=== PATIENT | female | born 1960 | race Asian ===

== ENCOUNTER 2017-02-13 15:00 | Emergency (ER) | payer OTHER ==
[~2017-02-13] VITALS: Ht 160 cm; Wt 68.0 kg
[~2017-02-13 15:00] MED LIST: ALPR0.25 PO; AZIT250T6 PO; BENZ100C PO; MAGN400C PO
[2017-02-13 15:06] VITALS: BP 132/86
--- NOTE | 2017-02-13 15:22 | PHYS DOC ---
General Chief Complaint: NEEDLE STICK Stated Complaint: NEEDLE STICK Time Seen by MD: 15:19 Source: patient Exam Limitations: no limitations Problems: History of Present Illness Initial Comments Pt is 56/F [facility] employee here for Work Comp needle stick injury. Pt accidentally stuck by needle this am while taking out trash. Needle was without protective tip cover and had been placed in the general trash--not a sharps. Pt states needle penetrated gloved right hand at anterior base 5th finger. Did not appear to go in deeply but pt says there was a tiny drop of blood. She washed the wound aggressively and reported to [facility]. In [facility] a report taken, labs ordered and pt ultimately sent to ED for labs and discuss post-exposure prophylaxis. CBC/CMP unremarkable, urine HCG neg , other labs apparently remain pending. Pt Td is up to date, she denies any hand or other symptoms. Pt has HTN otherwise negative history. Onset: this morning Severity: mild Pain/Injury Location: right hand Method of Injury: other Modifying Factors: improves with other Allergies: Coded Allergies: No Known Drug Allergies (Unverified , 04/20/16) Past Medical History Medical History: hypertension Surgical History: noncontributory Social History Smoker: non-smoker Alcohol: none Drugs: none Review of Systems Constitutional: denies chills, denies fever Respiratory: denies cough, denies shortness of breath Cardiovascular: denies chest pain, denies palpitations Gastrointestinal: denies nausea, denies vomiting Skin: see HPI Physical Exam General Appearance: WD/WN, no apparent distress Hand: normal inspection, non-tender, no evidence of injury (tiny puncture ant hand base right finger no erythema or other changes) Neurologic/Tendon: normal sensation, normal motor functions, normal tendon functions, responds to pain, no evidence tendon injury Psychiatric: alert, oriented x 3 Skin: normal color, warm/dry (R hand as above) Orders, Labs, Meds I discussed post-exposure prophylaxis with pt at length. No actual known exposure to HIV, pt very low risk and PEP not indicated. It was offered to pt as her choice, she opts not to take PEP. Advised to f/u [facility] regarding pending tests Departure Time of Disposition: 15:20 Disposition: 01 HOME, SELF-CARE Diagnosis: body fluid exposure, accidental needlestick Condition: GOOD Patient Instructions: Body Fluid Exposure, Needle Stick Injury Additional Instructions: No post-exposure prophylaxis. Follow up with employee health for pending results. Return to ED with new or changing symptoms. SIDDHARTHA LOPEZ DO Feb 13, 2017 15:22
== END 2017-02-13 15:30 | disposition home or self-care (01) ==
LOC: ER 15:00
DX: Z77.21 Contact with and (suspected) exposure to potentially hazardous body fluids (principal); S61.236A Puncture wound without foreign body of right little finger without damage to nail, initial encounter; I10 Essential (primary) hypertension; W46.0XXA Contact with hypodermic needle, initial encounter; Y93.89 Activity, other specified; Y99.8 Other external cause status; Y92.89 Other specified places as the place of occurrence of the external cause
CPT/HCPCS: 99281

== ENCOUNTER 2017-02-20 17:05 | Emergency (ER) | payer OTHER ==
[~2017-02-20] VITALS: Ht 160 cm; Wt 68.0 kg
[2017-02-20 17:15] VITALS: BP 135/95
[2017-02-20] MEDS ORDERED: ONDA4TAB10 PO (17:19)
--- NOTE | 2017-02-20 17:28 | ED.ADGEN ---
Past History Past Medical History: Hypertension Past Surgical History: No Surgical History Alcohol Use: None Drug Use: None Adult General HPI HPI Patient is a 56-year-old female present emergency department complaining of extreme nausea following her injection for her post exposure prophylaxis. Patient denies any other recent illness. She has not had any pre-arrival intervention today. Review of Systems Review of Systems Constitutional: Denies fever or chills [] Eyes: Denies change in visual acuity, redness, or eye pain [] HENT: Denies nasal congestion or sore throat [] Respiratory: Denies cough or shortness of breath [] Cardiovascular: No additional information not addressed in HPI [] GI: Denies abdominal pain, nausea, vomiting, bloody stools or diarrhea [] : Denies dysuria or hematuria [] Musculoskeletal: Denies back pain or joint pain [] Integument: Denies rash or skin lesions [] Neurologic: Denies headache, focal weakness or sensory changes [] Endocrine: Denies polyuria or polydipsia [] Current Medications Current Medications Current Medications Medications (Trade) Dose Ordered Sig/Ozzy Start Time Stop Time Status Last Admin Dose Admin Ondansetron HCl (Zofran Odt) 8 mg 1X ONCE 02/20/17 17:30 02/20/17 17:31 DC 02/20/17 17:30 8 MG Allergies Allergies Allergies Coded Allergies Type Severity Reaction Last Updated Verified No Known Drug Allergies 04/20/16 No Physical Exam Physical Exam Constitutional: Well developed, well nourished, no acute distress, non-toxic appearance. [] HENT: Normocephalic, atraumatic, bilateral external ears normal, oropharynx moist, no oral exudates, nose normal. [] Eyes: PERRLA, EOMI, conjunctiva normal, no discharge. [] Neck: Normal range of motion, no tenderness, supple, no stridor. [] Cardiovascular:Heart rate regular rhythm, no murmur [] Lungs & Thorax: Bilateral breath sounds clear to auscultation [] Abdomen: Bowel sounds normal, soft, no tenderness, no masses, no pulsatile masses. [] Skin: Warm, dry, no erythema, no rash. [] Back: No tenderness, no CVA tenderness. [] Extremities: No tenderness, no cyanosis, no clubbing, ROM intact, no edema. [] Neurologic: Alert and oriented X 3, normal motor function, normal sensory function, no focal deficits noted. [] Psychologic: Affect normal, judgement normal, mood normal. [] Current Patient Data Vital Signs Vital Signs Date Time Temp Pulse Resp B/P Pulse Ox O2 Delivery O2 Flow Rate FiO2 02/20/17 17:15 98.6 95 20 99 Room Air EKG EKG [] Radiology/Procedures Radiology/Procedures [] Course & Med Decision Making Course & Med Decision Making Pertinent Labs and Imaging studies reviewed. (See chart for details) Brisa RIOST here. Patient was sent with prescription for the same as well as supportive care and follow-up instructions. [] Final Impression Final Impression Nausea and vomiting [] Problems: Dragon Disclaimer Dragon Disclaimer This electronic medical record was generated, in whole or in part, using a voice recognition dictation system. MAIN HOLLEY MD Feb 20, 2017 17:28
[2017-02-20] MEDS: ONDANSETRON ODT 4 MG TAB.RAPDIS PO ONE (17:30)
== END 2017-02-20 17:55 | disposition home or self-care (01) ==
LOC: ER 17:05
DX: R11.2 Nausea with vomiting, unspecified (principal); I10 Essential (primary) hypertension
CPT/HCPCS: 99283; Q0162

== ENCOUNTER 2017-04-23 13:55 | Observation (INO) | payer OTHER ==
[~2017-04-23] VITALS: Ht 160 cm; Wt 73.5 kg
[~2017-04-23 13:55] MED LIST changes: +ONDA4TAB10 PO
[2017-04-23] MEDS ORDERED: ASPIRIN 81 MG TAB.CHEW PO ONE (15:30)
[2017-04-23] MEDS ORDERED: MORPHINE SULFATE 2 MG/ML DISP.SYRIN. IV ONE (15:30)
--- NOTE | 2017-04-23 15:39 | RAD ---
Portable chest, 04/23/2017: History: Chest pain The heart is at the upper limits of normal in size. The pulmonary vascularity is normal. No pulmonary infiltrates are seen. There is no evidence of pleural fluid. IMPRESSION: No acute cardiopulmonary abnormality is detected.
[2017-04-23 15:48] LABS: BASO % 1 % (0-3); EOS # 0.1 x10^3/uL (0.0-0.7); EOS % 1 % (0-3); HEMATOCRIT 40.8 % (36.0-47.0); LYMPH # 2.2 x10^3/uL (1.0-4.8); LYMPH % 39 % (24-48); MEAN CORPUSCULAR HEMOGLOBIN 31 pg (25-35); MEAN CORPUSCULAR HGB CONC 34 g/dL (31-37); MEAN CORPUSCULAR VOLUME 91 fL (79-100); MONO # 0.4 x10^3/uL (0.0-1.1); MONO % 7 % (0-9); NEUT % 53 % (31-73); PLATELET COUNT 147 x10^3/uL (140-400); RED CELL DISTRIBUTION WIDTH 13.4 % (11.5-14.5); WHITE BLOOD COUNT 5.6 x10^3/uL (4.0-11.0)
--- NOTE | 2017-04-23 16:02 | EKG ---
[address] [address] Test Date: 2017-04-23 Test Time: 14:10:36 Pat Name: ARGELIA VELEZ Department: Room: Gender: F Records Analyst: SHAMA : 1960 Requested By: MARQUEZ REARDON Order Number: [id number] Reading MD: Raffaele Espinoza Measurements Intervals [place] Rate: 80 P: 48 GA: 162 QRS: 38 QRSD: 86 T: 57 QT: 402 QTc: 467 Interpretive Statements SINUS RHYTHM NON SPECIFIC T ABNORMALITY RI6.01 Unconfirmed report Compared to ECG 04/20/2016 09:21:14 ST (T wave) deviation no longer present T-wave abnormality still present Electronically Signed On 04-24-2017 9:57:59 CDT by Raffaele Espinoza
[2017-04-23 16:04] LABS: ALBUMIN/GLOBULIN RATIO 1.1 (1.0-1.7); CALCIUM 8.9 mg/dL (8.5-10.1); CREATININE 0.7 mg/dL (0.6-1.0); GFR 86.6; MAGNESIUM 2.1 mg/dL (1.8-2.4); POTASSIUM 4.1 mmol/L (3.5-5.1); TOTAL BILIRUBIN 0.3 mg/dL (0.2-1.0); TOTAL PROTEIN 7.5 g/dL (6.4-8.2)
[2017-04-23] MEDS: NITROGLYCERIN SUBLINGUAL 0.4 MG BOTTLE OF 25. SL PRN ×2 (16:39→16:50)
[2017-04-23] MEDS ORDERED: NITROGLYCERIN OINT 1 GM PACKET. ONE (17:08)
--- NOTE | 2017-04-23 17:14 | PHYS DOC ---
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 She feels pain when she pushes on it. She also states that intermittently it is sharp in nature. She states that it has been persistent for the last 2 hours prior to check in. Nothing really seemed to make it better or worse. She denies any associated nausea or vomiting. Complains of having some posterior head pain. She states that she has a "funny" sensation present to the left shoulder and radiating down her arm. Denies parasthesias or loss of motion or loss of strength. Denies any significant weakness. She denies any radiation of the pain to the back. She states that she had pain like this one other time but that has been greater than 10 years ago. She does have a positive family history of CAD with her father dying form IA in his late 50's or so she believes. She states that recently she had been told that her cholesterol was slightly elevated but she doesn't know specific numbers of LDL, HDL or Total chol or triglycerides. She has been a lifetime non smoker and denies and other drug use or alcohol. She denies any respiratory symptoms, no shortness of breath, cough or dyspnea. No difficulties with activity or lying flat. No complaints of edema. No leg pain Denies back pain or abdominal pain. No complaints. Severity: moderate Location: other (present to the left anterior chest above the breast. ) Prior CP/Workup: no prior cardiac workup Modifying Factors: No breathing, No coughing, No eating, No lying down, No movement Nitro Today/Relief: no nitro taken today Aspirin Today: no aspirin today Associated Symptoms: denies symptoms Allergies: Coded Allergies: No Known Drug Allergies (Unverified , 04/20/16) Past Medical History Surgical History: noncontributory Family History Significant Family History: heart disease (mother and father. FAther of IA in late 50's), hypertension, vascular disease Social History Smoker: non-smoker Alcohol: none Drugs: none Constitutional: no symptoms reported EENTM: no symptoms reported Respiratory: no symptoms reported Gastrointestinal: no symptoms reported Genitourinary: no symptoms reported Musculoskeletal: no symptoms reported Skin: no symptoms reported Psychiatric/Neurological: no symptoms reported Endocrine: no symptoms reported Hematologic/Lymphatic: no symptoms reported All Other Systems: Reviewed and Negative Physical Exam General Appearance: WD/WN, no apparent distress HEENT: PERRL/EOMI, normal ENT inspection Neck: non-tender, full range of motion, supple Respiratory: chest non-tender, lungs clear, normal breath sounds Cardiovascular: normal peripheral pulses, regular rate, rhythm, no edema, no JVD, no murmur Peripheral Pulses: 2+ carotid (R), 2+ carotid (L), 2+ dorsalis pedis (R) Gastrointestinal: normal bowel sounds, non tender, soft, no organomegaly, no pulsatile mass Extremities: normal range of motion, normal inspection, no pedal edema, no calf tenderness, normal capillary refill Neurologic/Psychiatric: district court justice II-XII nml as tested, no motor/sensory deficits, alert, normal mood/affect, oriented x 3 Skin: normal color Lymphatic: no adenopathy Orders, Labs, Meds Laboratory results discussed with patient and family. Patient discussed with Dr. Hagan. Patient will be admitted for chest pain evaluation. She is agreeable to this plan of admission at this time. Patient did have relief of chest pain with nitro sublingual and patient had nitro placed on chest 1" MARQUEZ REARDON MD Apr 23, 2017 17:14
[2017-04-23] MEDS ORDERED: NITROGLYCERIN OINT 1 GM PACKET. TP ONE (17:30)
[2017-04-23 17:35] LABS: BILIRUBIN,URINE NEG (NEG); CLARITY,URINE CLEAR; COLOR,URINE STRAW; GLUCOSE,URINE NEG (NEG)
[2017-04-23 17:36] LABS: BACTERIA,URINE 0 /HPF (0-FEW); NITRITE,URINE NEG (NEG); RBC,URINE 0 /HPF (0-2); UROBILINOGEN,URINE 0.2 mg/dL (0.2 mg/dL); WBC,URINE OCC /HPF (0-4)
[2017-04-23 17:37] LABS: SQUAMOUS EPITHELIAL CELL,UR OCC /LPF
[2017-04-23 18:00] VITALS: BP 129/74
[2017-04-23 23:30] VITALS: BP 114/66
[2017-04-24 06:17] LABS: BASO % 1 % (0-3); EOS # 0.1 x10^3/uL (0.0-0.7); EOS % 2 % (0-3); HEMOGLOBIN 13.5 g/dL (12.0-15.5); LYMPH # 1.4 x10^3/uL (1.0-4.8); LYMPH % 29 % (24-48); MEAN CORPUSCULAR HEMOGLOBIN 31 pg (25-35); MEAN CORPUSCULAR HGB CONC 35 g/dL (31-37); MEAN CORPUSCULAR VOLUME 90 fL (79-100); MONO # 0.4 x10^3/uL (0.0-1.1); MONO % 8 % (0-9); NEUT # 2.9 x10^3uL (1.8-7.7); NEUT % 61 % (31-73); PLATELET COUNT 134 x10^3/uL (140-400); RED BLOOD COUNT 4.34 x10^6/uL (3.50-5.40); RED CELL DISTRIBUTION WIDTH 13.3 % (11.5-14.5); WHITE BLOOD COUNT 4.7 x10^3/uL (4.0-11.0)
[2017-04-24 06:19] VITALS: BP 121/80
[2017-04-24 06:29] LABS: CALCIUM 8.8 mg/dL (8.5-10.1); CREATININE 0.6 mg/dL (0.6-1.0); GFR 103.4; POTASSIUM 4.2 mmol/L (3.5-5.1)
--- NOTE | 2017-04-24 09:41 | PDOC2 ---
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 She presents with complaints of chest pressure that started while at work yesterday. She describes a squeezing discomfort occurring when she exerts or when she becomes emotional and normally resolves with rest. She reports this has occurred off and on prior to yesterday but not as severe. In the ED she described some radiation to her left arm but this am she reports only some radiation up the back of her neck. She denies nausea or diaphoresis but reports some associated dyspnea, lightheadedness and weakness or feeling fatigued. She reports feeling more weak and fatigued lately. She denies any palpitations, congestive symptoms or syncope. She denies problems with functional capacity except as above. She does report episodes of weakness that she associates with low blood sugar and reports rest and food improve the symptoms. Her discomfort was improved in the ED with NTG. Past Medical History HLD Past Surgical History: Hysterectomy Family History Father with coronary disease and hypertension in his 50s. Social History non smoker, no significant ETOH, no illicit drugs Current Medications Current Medications Aspirin (Children'S Aspirin) 324 mg 1X ONCE PO Last administered on 04/23/17 15:30; Start 04/23/17 at 15:30; Stop 04/23/17 at 15:31; Status DC Morphine Sulfate (Morphine 2mg Syringe) 2 mg 1X ONCE IV Last administered on 15:45; Start 04/23/17 at 15:30; Stop 04/23/17 at 15:31; Status DC Nitroglycerin (Nitro-Bid Oint) 1 inch 1X ONCE TP Last administered on 17:10; Start 04/23/17 at 17:30; Stop 04/23/17 at 17:31; Status DC Nitroglycerin (Nitro-Bid Oint) 1 inch STK-MED ONCE .ROUTE ; Start 04/23/17 at 17: 08; Stop 04/23/17 at 17:09; Status DC Nitroglycerin (Nitrostat) 0.4 mg PRN Q5MIN PRN SL chest pain Last administered on 04/23/17 16:50; Start 04/23/17 at 17:15 Active Scripts Active Zofran Odt (Ondansetron) 4 Mg Tab.rapdis 4 Mg PO Q6HRS PRN Tessalon Perle (Benzonatate) 100 Mg Capsule 1 Cap PO TID PRN Azithromycin Tablet (Azithromycin) 250 Mg Tablet 1 Pkg PO UD Xanax (Alprazolam) 0.25 Mg Tablet 0.25 Mg PO PRN Q6HRS PRN Reported Magnesium (Magnesium Oxide) 400 Mg Capsule 1 Cap PO DAILY PRN Allergies: Coded Allergies: No Known Drug Allergies (Unverified , 04/20/16) Review of System as per HPI General: Alert, Oriented X3, Cooperative, No acute distress HEENT: Atraumatic, EOMI, Mucous membr. moist/pink Lungs: Clear to auscultation, Normal air movement Heart: Regular rate, Normal S1, Normal S2, Other (no significant murmurs, no gallops, clicks or rubs) Abdomen: Normal bowel sounds, Soft, No tenderness Extremities: No cyanosis, No edema, Normal pulses Neuro: Normal speech, Strength at 5/5 X4 ext Psych/Mental Status: Mental status NL, Mood NL VITALS Vital Signs Date Time Temp Pulse Resp B/P (MAP) Pulse Ox O2 Delivery O2 Flow Rate FiO2 04/24/17 06:19 97.7 64 18 121/80 (94) 94 Room Air Labs Laboratory Tests Test 04/23/17 14:13 04/23/17 16:50 04/24/17 00:20 04/24/17 05:57 White Blood Count 5.6 x10^3/uL (4.0-11.0) 4.7 x10^3/uL (4.0-11.0) Red Blood Count 4.50 x10^6/uL (3.50-5.40) 4.34 x10^6/uL (3.50-5.40) Hemoglobin 14.0 g/dL (12.0-15.5) 13.5 g/dL (12.0-15.5) Hematocrit 40.8 % (36.0-47.0) 39.0 % (36.0-47.0) Mean Corpuscular Volume 91 fL (79-100) 90 fL (79-100) Mean Corpuscular Hemoglobin 31 pg (25-35) 31 pg (25-35) Mean Corpuscular Hemoglobin Concent 34 g/dL (31-37) 35 g/dL (31-37) Red Cell Distribution Width 13.4 % (11.5-14.5) 13.3 % (11.5-14.5) Platelet Count 147 x10^3/uL (140-400) 134 x10^3/uL (140-400) Neutrophils (%) (Auto) 53 % (31-73) 61 % (31-73) Lymphocytes (%) (Auto) 39 % (24-48) 29 % (24-48) Monocytes (%) (Auto) 7 % (0-9) 8 % (0-9) Eosinophils (%) (Auto) 1 % (0-3) 2 % (0-3) Basophils (%) (Auto) 1 % (0-3) 1 % (0-3) Neutrophils # (Auto) 3.0 x10^3uL (1.8-7.7) 2.9 x10^3uL (1.8-7.7) Lymphocytes # (Auto) 2.2 x10^3/uL (1.0-4.8) 1.4 x10^3/uL (1.0-4.8) Monocytes # (Auto) 0.4 x10^3/uL (0.0-1.1) 0.4 x10^3/uL (0.0-1.1) Eosinophils # (Auto) 0.1 x10^3/uL (0.0-0.7) 0.1 x10^3/uL (0.0-0.7) Basophils # (Auto) 0.0 x10^3/uL (0.0-0.2) 0.0 x10^3/uL (0.0-0.2) Prothrombin Time 9.6 SEC (9.4-11.4) Prothromb Time International Ratio 0.9 (0.9-1.1) Activated Partial Thromboplast Time 23 SEC (23-33) D-Dimer (Flores) 0.52 mg/L (0.00-0.50) Sodium Level 143 mmol/L (136-145) 144 mmol/L (136-145) Potassium Level 4.1 mmol/L (3.5-5.1) 4.2 mmol/L (3.5-5.1) Chloride Level 108 mmol/L (98-107) 109 mmol/L (98-107) Carbon Dioxide Level 30 mmol/L (21-32) 30 mmol/L (21-32) Anion Gap 5 (6-14) 5 (6-14) Blood Urea Nitrogen 19 mg/dL (7-20) 15 mg/dL (7-20) Creatinine 0.7 mg/dL (0.6-1.0) 0.6 mg/dL (0.6-1.0) Estimated GFR (Cockcroft-Gault) 86.6 103.4 BUN/Creatinine Ratio 27 (6-20) Glucose Level 107 mg/dL (70-99) 116 mg/dL (70-99) Calcium Level 8.9 mg/dL (8.5-10.1) 8.8 mg/dL (8.5-10.1) Magnesium Level 2.1 mg/dL (1.8-2.4) Total Bilirubin 0.3 mg/dL (0.2-1.0) Aspartate Amino Transf (AST/SGOT) 21 U/L (15-37) Alanine Aminotransferase (ALT/SGPT) 32 U/L (14-59) Alkaline Phosphatase 115 U/L (46-116) Creatine Kinase 141 U/L (26-192) Creatine Kinase MB (Mass) 0.7 ng/mL (0.0-3.6) Creatine Kinase MB Relative Index 0.5 % (0-4) Troponin I Quantitative < 0.017 ng/mL (0-0.055) < 0.017 ng/mL (0-0.055) < 0.017 ng/mL (0-0.055) Total Protein 7.5 g/dL (6.4-8.2) Albumin 4.0 g/dL (3.4-5.0) Albumin/Globulin Ratio 1.1 (1.0-1.7) Lipase 228 U/L (73-393) Urine Collection Type Unknown Urine Color Straw Urine Clarity Clear Urine pH 5.5 Urine Specific [place] 1.010 Urine Protein Neg (NEG-TRACE) Urine Glucose (UA) Neg mg/dL (NEG) Urine Ketones (Stick) Neg mg/dL (NEG) Urine Blood Trace (NEG) Urine Nitrite Neg (NEG) Urine Bilirubin Neg (NEG) Urine Urobilinogen Dipstick 0.2 mg/dL (0.2 mg/dL) Urine Leukocyte Esterase Neg (NEG) Urine RBC 0 /HPF (0-2) Urine WBC Occ /HPF (0-4) Urine Squamous Epithelial Cells Occ /LPF Urine Bacteria 0 /HPF (0-FEW) Images CXR - IMPRESSION: No acute cardiopulmonary abnormality is detected. EKG - sinus rhythm without acute abnormalities. Assessment/Plan 1. Chest pain, exertional - improved with nitrates. Cooper remain negative. EKG - no acute abnormalities. Suggest echocardiogram. In light of her family history of premature coronary disease and exertional pain relief with nitrates, suggest outpatient MPI if echo normal. 2. HLD - check lipids. 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
[2017-04-24 10:39] VITALS: BP 116/73
[2017-04-24] MEDS ORDERED: IOHEXOL 300 MG/ML 75 ML VIAL. IV ONE (11:45)
--- NOTE | 2017-04-24 12:39 | RAD ---
Indication chest pain. Elevated d-dimer. Contrast imaging through the chest was performed. Examination was tailored for the detection of pulmonary embolus. MIP images were generated and reviewed. No prior CT imaging of the chest is available. 75 cc of Omnipaque 300 was administered intravenously. The thoracic aorta appears unremarkable. The study is negative for pulmonary embolus. There is no significant hilar or mediastinal adenopathy. An acute parenchymal infiltrate is not seen. A dominant soft tissue mass in either lung is not seen. No acute or significant finding is seen in the upper abdomen. There is a 1 cm mass in the liver likely reflecting a cyst IMPRESSION: No acute finding apparent in the chest. Negative study for pulmonary embolus PQRS Compliance Statement: One or more of the following individualized dose reduction techniques were utilized for this examination: 1. Automated exposure control 2. Adjustment of the mA and/or kV according to patient size 3. Use of iterative reconstruction technique
--- NOTE | 2017-04-24 13:35 | CARD ---
APPROVED REPORT EXAM: Two-dimensional and M-mode echocardiogram with Doppler and color Doppler. Other Information Quality : Average Rhythm : NSR INDICATION Chest Pain 2D DIMENSIONS Left Atrium(2D)3.2 (1.6-4.0cm)IVSd1.0 (0.7-1.1cm) Aortic Root(2D)3.3 (2.0-3.7cm)LVDd5.2 (3.9-5.9cm) LVOT Diameter2.0 (1.8-2.4cm)PWd1.0 (0.7-1.1cm) LVDs3.5 (2.5-4.0cm)FS (%) 33.5 % SV81.5 mlLVEF(%)61.8 (>50%) Aortic Valve AoV Peak Artur.119.8cm/sAoV VTI26.3cm AO Peak GR.5.7mmHgLVOT Peak Artur.84.8cm/s LVOT VTI 21.51cmAO Mean GR.3mmHg LUCRECIA (VMAX)2.58ic3XZV (VTI)2.61cm2 AI P 1/2 Hzmd862zs Mitral Valve MV E Utdhldpk27.1cm/sMV DECEL GDWO797nc MV A Okosixcu71.8cm/sE/A Ratio0.7 MV A Ccdcoquq082yk Tricuspid Valve TR P. Lsqcjdum004kc/sRAP GBPGPYCZ3gnVf TR Peak Gr.29orMsCEQY98rnPh Pulmonary Vein S1 Darvuolk28.9cm/sD2 Satfapes68.5cm/s LEFT VENTRICLE The left ventricle is normal size. There is normal left ventricular wall thickness. Left ventricle sy stolic function is normal. The Ejection Fraction is 55-60%. There is normal LV segmental wall motion. Tissue Doppler imaging reveals mild left ventricular diastolic dysfunction. Transmitral Doppler flow pattern is Grade I-abnormal relaxation pattern. There is no ventricular septal defect visualized. RIGHT VENTRICLE The right ventricle is normal size. The right ventricular systolic function is normal. ATRIA The left atrium size is normal. The right atrium size is normal. The interatrial septum is intact wit h no evidence for an atrial septal defect or patent foramen ovale as noted on 2-D or Doppler imaging. AORTIC VALVE The aortic valve is normal in structure and function. The aortic valve is trileaflet. Doppler and Col or Flow revealed no significant aortic regurgitation. There is no significant aortic valvular stenosi s. MITRAL VALVE The mitral valve is normal in structure and function. There is no mitral valve stenosis. Doppler and Color Flow revealed trace mitral regurgitation. TRICUSPID VALVE The tricuspid valve is normal in structure and function. Doppler and Color Flow revealed trace tricus pid regurgitation. The PA pressure was estimated at 25 mmHg. There is no tricuspid valve stenosis. PULMONIC VALVE The pulmonic valve is not well visualized. Doppler and Color Flow revealed no pulmonic valvular regur gitation. There is no pulmonic valvular stenosis. GREAT VESSELS The aortic root is normal in size. The ascending aorta is normal in size. Normal pulmonary venous domingo w (Doppler). The IVC is normal in size and collapses >50% with inspiration. PERICARDIAL EFFUSION There is no evidence of significant pericardial effusion. Critical Notification Critical Value: No <Conclusion> The left ventricle is normal size. Left ventricle systolic function is normal. The Ejection Fraction is 55-60%. There is no significant aortic valvular stenosis. Doppler and Color Flow revealed no significant aortic regurgitation. Doppler and Color Flow revealed trace mitral regurgitation. Doppler and Color Flow revealed trace tricuspid regurgitation. The PA pressure was estimated at 25 mmHg.
[2017-04-24 14:28] VITALS: BP 119/77
--- NOTE | 2017-04-24 16:25 | HP ---
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 As a result of this, the patient was seen in the Emergency Room. There is a high risk of previous family history of early heart disease, and as a result of this, the patient was admitted to the hospital for rule out ND protocol. The patient reported no shortness breath, nausea, vomiting, or diaphoresis. In any case, the patient was admitted for rule out. PAST SURGICAL HISTORY: Hysterectomy. FAMILY HISTORY: Father of coronary artery disease in his 50s. SOCIAL HISTORY: The patient denies smoking, alcohol, or drug use. MEDICATIONS: Basically, some nitroglycerin and aspirin p.r.n. ALLERGIES: The patient has no known drug allergies. REVIEW OF SYSTEMS: GENERAL: Outside of the chest pain, the patient denies any headaches, visual changes, blurred vision, double vision. Denies shortness of breath, abdominal pain, nausea, vomiting, melena, hematochezia, hematemesis all negative. EXTREMITIES: Without clubbing, cyanosis, or edema. NEUROLOGIC: Intact. PHYSICAL EXAMINATION: GENERAL: This is a pleasant white female in no apparent distress at the present time. VITAL SIGNS: Blood pressure 120/70, respirations 16, pulse 70, afebrile. HEENT: The patient's head was atraumatic, normocephalic. Eyes: PERRLA without jaundice. Mouth and throat were normal. NECK: Supple without JVD or thyromegaly. LUNGS: Diminished throughout, but basically clear. CARDIOVASCULAR: Regular sinus rhythm. ABDOMEN: Soft, nontender. No rebound or guarding. Positive bowel sounds. No hepatosplenomegaly is noted. EXTREMITIES: No clubbing, cyanosis, nor edema. NEUROLOGIC: The patient was alert and oriented x 3. Speech fluent, spontaneous and appropriate. Cranial nerves 2-12 grossly intact. The patient will be admitted to rule out ND protocol. So far, cardiac enzymes were all within normal limits. Elevated D-dimer. CTA pending on such as is the hemoglobin A1c and cholesterol. The patient was seen by Cardiology at [place] and will make further evaluation on her pending the results of her CTA. IMPRESSION: Chest pain with activity, family history positive for early heart disease. We will write reports and make further evaluation at that time. PAULINE MULTANI MD DR: JC/mary JOB#: [id number] / [id number]
[2017-04-25 03:08] LABS: HEMOGLOBIN A1C 5.7 % (4.8-5.6)
== END 2017-04-24 14:46 | disposition home or self-care (01) ==
LOC: ER 13:55 → 1 SOUTH 17:06
PROVIDERS: ADMIT Family Medicine; ATTEND Family Medicine
DX: R07.89 Other chest pain (principal); E78.5 Hyperlipidemia, unspecified; E78.00 Pure hypercholesterolemia, unspecified; Z82.49 Family history of ischemic heart disease and other diseases of the circulatory system
CPT/HCPCS: 36415; 71010; 71275; 80048; 80053; 80061; 81001; 82553; 83036; 83690; 83735; 84443; 84484; 85027; 85379; 85610; 85730; 93005; 93306; 96374; 99285; G0378; J2270; Q9967; G0379

== ENCOUNTER 2017-05-26 09:32 | Emergency (ER) | payer OTHER ==
[~2017-05-26] VITALS: Ht 312.4 cm; Wt 73.5 kg
[2017-05-26 09:39] VITALS: BP 160/106
--- NOTE | 2017-05-26 10:04 | PHYS DOC ---
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 Patient states that yesterday morning around 9 she was wheeling a large cart out of the OR doorway when the door swung back and hit her in the back. She has a bruise at her right costovertebral angle with some abrasion. She denied head injury or loss of consciousness or neck pain, she had pain localized to the site of contact yesterday and she applied ice. Today when she woke she was sore primarily in her thoracic or lumbar paraspinal musculature as well as her upper shoulders and neck. Timing/Duration: 24 hours Severity: mild Modifying Factors: worse with movement, improves with rest Associated Symptoms: malaise, other Allergies: Coded Allergies: No Known Drug Allergies (Unverified , 04/20/16) Past Medical History Medical History: no pertinent history Surgical History: noncontributory Family History Significant Family History: heart disease, hypertension, vascular disease Social History Smoker: non-smoker Alcohol: none Drugs: none Review of Systems Constitutional: denies chills, denies fever Respiratory: denies cough, denies shortness of breath Cardiovascular: denies chest pain, denies palpitations Gastrointestinal: denies abdominal pain, denies nausea, denies vomiting Musculoskeletal: see HPI Psychiatric/Neurological: denies numbness, denies paresthesia, denies tingling , denies weakness Hematologic/Lymphatic: denies blood clots, denies easy bleeding, denies easy bruising Physical Exam General Appearance: WD/WN, no apparent distress Eyes: bilateral eye normal inspection, bilateral eye PERRL, bilateral eye EOMI Ear, Nose, Throat: hearing grossly normal, normal ENT inspection, normal pharynx Neck: supple (there is bilateral paraspinal muscle hypertonicity with mild tenderness, no bony tenderness or palpable deformity.) Respiratory: normal breath sounds, no respiratory distress Cardiovascular: normal peripheral pulses, regular rate, rhythm Gastrointestinal: non tender, soft Back: no CVA tenderness, no vertebral tenderness (tenderness noted at the thoracic or lumbar paraspinals as well as the trapezius muscles. 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 Patient feels she can't get through the rest of the work day, I discuss time off and [id number] medications as well as follow-up with employee health nurse. She is breast agreement and understanding of treatment plan. Departure Time of Disposition: 10:01 Disposition: 01 HOME, SELF-CARE Diagnosis: contusion, abrasion, muscle strain Condition: GOOD Patient Instructions: Abrasion, Emon-[id number]-[id number], Contusion, Rbnl-[id number], Thoracic Strain, [id number]-[id number] Additional Instructions: Rest, no strenuous activity. Off work today as well as tomorrow if needed. Ice to affected area for the remainder of the day 20 minutes at a time 4-6 times per 24 hours. Starting tomorrow use heating pad 20 minutes at a time 4-6 times daily followed by gentle stretching. [id number] Tylenol and ibuprofen as needed for discomfort. Keep abrasions clean and wash twice daily with soap and warm water. Follow-up with employee health regarding work comp injury. Follow-up with her doctor next week for recheck. Return to the ED with new or changing symptoms. SIDDHARTHA LOPEZ DO May 26, 2017 10:04
== END 2017-05-26 10:10 | disposition home or self-care (01) ==
LOC: ER 09:32
DX: S46.912A Strain of unspecified muscle, fascia and tendon at shoulder and upper arm level, left arm, initial encounter (principal); S46.911A Strain of unspecified muscle, fascia and tendon at shoulder and upper arm level, right arm, initial encounter; S20.211A Contusion of right front wall of thorax, initial encounter; W22.8XXA Striking against or struck by other objects, initial encounter; Y93.89 Activity, other specified; Y99.8 Other external cause status; Y92.89 Other specified places as the place of occurrence of the external cause
CPT/HCPCS: 99281

== ENCOUNTER → 2017-06-25 | Outpatient (CLI) | payer OTHER ==
[2017-05-26 09:39] VITALS: BP 160/106
--- NOTE | 2017-06-25 13:37 | CARD ---
APPROVED REPORT INDICATION Atypical chest pain Reason : Dizziness PROCEDURE The patient underwent an exercise Stress Test using the Michael protocol. Blood pressure, heart rate, a nd EKG were monitored. An Echocardiogram was performed by forestry technician in four stages in quad fashion. At peak stress four se lected images were obtained and placed side by side with resting images for comparison. STRESS ECHO FINDINGS The resting Echocardiogram showed normal left ventricular contractility with an estimated Ejection Fr action of about 60 %. Normal augmentation of myocardial wall segments using a 16 segment model. Test Type: Exercise Stress Nurse/Tech: Margarita Test Indications: Atypical chest pain Resting ECG: Sinus rhythm Resting Heart Rate: 66 bpm Resting Blood Pressure: 133/78mmHg Pretest Chest Pain: None Nurse/Tech Notes Non specific T wave abnormalities Stress Symptoms Fatigue, some dizziness, Dyspnea POST EXERCISE Reason for Termination: Fatigue Target HR: Yes Max HR: 151 bpm Exercise capacity: 10.0METs Max Blood Pressure: 156/66mmHg Blood Pressure response to exercise: Normal blood pressure response during stress. Heart Rate response to exercise: Normal Chest Pain: No. Arrhythmia: No. ST Change: Yes. Minimal ns st abnormality/ nonspecific INTERPRETATION Stress EKG Conclusion: Baseline EKG showed sinus rhythm. No ischemic changes at peak stress. No arr hythmias. RESTING ECG Rhythm: Sinus STRESS ECG Rhythm: Sinus Tachycardia Arrhythmias: None Stress EKG shows no significant changes. Preliminary Notification Critical Value: No <Conclusion> Treadmill exercise stress echocardiogram did not show any evidence of ischemia or infarct. Normal left ventricle systolic function with ejection fraction estimated at 60%. Patient had good activity tolerance. Low risk for cardiac events.
== END | disposition home or self-care (01) ==
LOC: ECHO 09:35
PROVIDERS: ATTEND Internal Medicine Cardiovascular Disease
DX: R07.89 Other chest pain (principal); R42 Dizziness and giddiness; R53.83 Other fatigue; R06.00 Dyspnea, unspecified
CPT/HCPCS: 93307; 93350

== ENCOUNTER → 2017-08-30 | Outpatient (CLI) | payer OTHER ==
--- NOTE | 2017-08-30 14:55 | RAD ---
Indication pain. Grayscale color Doppler and spectral imaging was performed. Examination was targeted to the veins of the left lower extremity. The common femoral, femoral and popliteal vessels demonstrate normal flow compressibility and augmentation. No thrombus is seen. The right common femoral vein appeared normal. IMPRESSION: Negative left lower extremity venous analysis for DVT
== END | disposition home or self-care (01) ==
LOC: US 13:04
PROVIDERS: ATTEND Nurse Practitioner Adult Health
DX: M79.662 Pain in left lower leg (principal); M79.89 Other specified soft tissue disorders; M54.9 Dorsalgia, unspecified; M25.512 Pain in left shoulder; M25.552 Pain in left hip; E78.5 Hyperlipidemia, unspecified
CPT/HCPCS: 93971

== ENCOUNTER 2017-10-04 10:15 | Emergency (ER) | payer OTHER ==
[2017-10-04 10:28] VITALS: BP 149/97
[2017-10-04] MEDS ORDERED: PHEN100T82 PO (10:40)
[2017-10-04] MEDS ORDERED: SULF1TAB24 PO (10:40)
--- NOTE | 2017-10-04 10:43 | PHYS DOC ---
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 Patient states that she thought he had a cold the past few days she's taken cold and sinus medications. She's had some low abdominal cramping and frequency hesitancy of urine along with some dysuria. Today she thought she noticed probable blood so she decided to check in as a patient. No fever chills sweats or body aches no nausea vomiting or diarrhea. In emergency department she is afebrile and vital signs are stable. Timing/Duration: other Severity: moderate Modifying Factors: improves with other Associated Symptoms: other Allergies: Coded Allergies: No Known Drug Allergies (Unverified , 04/20/16) Past Medical History Medical History: no pertinent history Surgical History: noncontributory Family History Significant Family History: heart disease, hypertension, vascular disease Social History Smoker: non-smoker Alcohol: none Drugs: none Review of Systems Constitutional: denies chills, denies diaphoresis, denies fever Respiratory: denies cough, denies shortness of breath Cardiovascular: denies chest pain, denies palpitations Gastrointestinal: abdominal pain, denies nausea, denies vomiting Genitourinary: see HPI Musculoskeletal: denies back pain, denies joint swelling, denies neck pain Psychiatric/Neurological: denies headache, denies numbness, denies paresthesia Hematologic/Lymphatic: denies blood clots, denies easy bleeding, denies easy bruising Physical Exam General Appearance: WD/WN, no apparent distress Ear, Nose, Throat: hearing grossly normal, normal ENT inspection Neck: non-tender, supple Respiratory: normal breath sounds, no respiratory distress Gastrointestinal: soft (suprapubic tenderness without rebound or guarding negative Boswell negative McBurney abdomen is soft nondistended bowel sounds normal) Back: no CVA tenderness, no vertebral tenderness Extremities: non-tender, normal inspection 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 I discussed findings with the patient and encouraged her to drink more fluids. I encouraged her to take the rest the day off go home and rest. Signs and symptoms to monitor as well as urgent indication to return to the department discussed and her questions were answered. She expressed agreement and understanding with treatment plan. Departure Time of Disposition: 10:41 Disposition: 01 HOME, SELF-CARE Diagnosis: UTI Condition: GOOD Patient Instructions: Urinary Tract Infection, Nqqf-[id number] Additional Instructions: Please review the patient education handout. Aggressive hydration with gatorade, water. Off work today. OTC tylenol as needed. Rx: bactrim ds, pyridium Follow up with your doctor in 7-10 days for recheck of symptoms and urine culture. Return to ED with new or changing symptoms. SIDDHARTHA LOPEZ DO Oct 04, 2017 10:43
[2017-10-04] MEDS ORDERED: PHENAZOPYRIDINE 100 MG TABLET. PO ONE (11:10)
[2017-10-04] MEDS ORDERED: SMZ/TMP 800/160MG TABLET. PO ONE (11:10)
[2017-10-04] MEDS ORDERED: ONDANSETRON ODT 4 MG TAB.RAPDIS PO ONE (11:10)
== END 2017-10-04 10:52 | disposition home or self-care (01) ==
LOC: ER 10:15
DX: N39.0 Urinary tract infection, site not specified (principal); I11.9 Hypertensive heart disease without heart failure
CPT/HCPCS: 99284; Q0162

== ENCOUNTER 2017-10-06 11:33 | Emergency (ER) | payer OTHER ==
[~2017-10-06 11:33] MED LIST changes: +PHEN100T82 PO; +SULF1TAB24 PO
[2017-10-06 11:35] VITALS: BP 157/89
--- NOTE | 2017-10-06 12:32 | PHYS DOC ---
General Chief Complaint: NAUSEA/VOMITING/DIARRHEA Stated Complaint: HEADACHE,CHILLS,CONGESTION Time Seen by MD: 12:30 Source: patient, old records Exam Limitations: no limitations Problems: History of Present Illness Initial Comments Patient is a 56-year-old female who comes in the ED complaining of abdominal discomfort and vomiting. Patient was seen by me 2 days ago diagnosed with urinary tract infection. She was prescribed Pyridium and Bactrim DS. She states that the dysuria and lower abdominal discomfort have resolved however each time she takes the Bactrim she developed severe abdominal cramping and nausea vomiting. She says she has kept very little down since she started taking the Bactrim and has no other new exposures or medications. She denies any travel or bad food exposure no fever chills sweats or body aches. On arrival vital signs are stable Timing/Duration: 24 hours Severity: moderate Modifying Factors: worse with medication, improves with rest Associated Symptoms: nausea/vomiting, other Allergies: Coded Allergies: No Known Drug Allergies (Unverified , 04/20/16) Past Medical History Medical History: no pertinent history Surgical History: noncontributory Family History Significant Family History: heart disease, hypertension, vascular disease Social History Smoker: non-smoker Alcohol: none Drugs: none Review of Systems Constitutional: denies chills, denies diaphoresis, denies fever, malaise Respiratory: denies cough, denies shortness of breath Cardiovascular: denies chest pain, denies palpitations Gastrointestinal: see HPI Genitourinary: see HPI Musculoskeletal: denies back pain, denies muscle pain, denies neck pain Psychiatric/Neurological: denies headache, denies numbness, denies paresthesia Physical Exam General Appearance: WD/WN, mild distress Ear, Nose, Throat: hearing grossly normal, normal ENT inspection, normal pharynx Neck: non-tender, supple Respiratory: normal breath sounds, no respiratory distress Cardiovascular: normal peripheral pulses, regular rate, rhythm Gastrointestinal: soft (nondistended, mild diffuse muscular tenderness without rebound guarding or masses, bowel sounds are normal in a Boswell negative McBurney) Rectal: deferred Back: no CVA tenderness, no vertebral tenderness Extremities: non-tender, normal inspection 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 Patient states that she's been taking it with food but from our discussion is is revealed that she's been afraid to eat due to the nausea and vomiting causing her to further take medication on an empty stomach I feel exacerbating or nausea vomiting. It is determined that the best course of action would be to try an alternative antibiotic, I discussed [id number] prescription medications as well as oral hydration and dietary modifications. I discussed time off work signs and symptoms to monitor and indications for urgent return to the department. Patient's questions were answered to her satisfaction and she expressed agreement and understanding with the treatment plan. Departure Time of Disposition: 12:30 Disposition: 01 HOME, SELF-CARE Diagnosis: Drug Intolerance (GI), UTI Condition: GOOD Patient Instructions: Drug Reaction, GI Intolerance Additional Instructions: Discontinue Bactrim DS (trimethoprim sulfamethoxazole). Continue Pyridium until finished. Aggressive hydration with Gatorade or water. [id number] Tylenol and ibuprofen as needed. Prescription: Cephalexin, Zofran ODT, dicyclomine Work excuse for today and tomorrow. Follow-up with your doctor tomorrow for recheck. Return to ED with new or changing symptoms. SIDDHARTHA LOPEZ DO Oct 06, 2017 12:32
[2017-10-06] MEDS ORDERED: DICY20TA3 PO (12:34)
[2017-10-06] MEDS ORDERED: CEPH500T PO (12:34)
[2017-10-06] MEDS ORDERED: ONDA4TAB10 PO (12:34)
== END 2017-10-06 12:45 | disposition home or self-care (01) ==
LOC: ER 11:33
DX: R10.9 Unspecified abdominal pain (principal); R11.2 Nausea with vomiting, unspecified; T37.0X5A Adverse effect of sulfonamides, initial encounter; N39.0 Urinary tract infection, site not specified; I11.9 Hypertensive heart disease without heart failure; Y92.89 Other specified places as the place of occurrence of the external cause
CPT/HCPCS: 99283

== ENCOUNTER → 2017-11-28 | Outpatient (CLI) | payer OTHER ==
[~2017-11-28] MED LIST changes: +CEPH500T PO; +DICY20TA3 PO
[2017-11-28 09:12] LABS: BASO % 0 % (0-3); EOS # 0.1 x10^3/uL (0.0-0.7); EOS % 2 % (0-3); HEMATOCRIT 41.9 % (36.0-47.0); HEMOGLOBIN 14.2 g/dL (12.0-15.5); LYMPH # 1.6 x10^3/uL (1.0-4.8); LYMPH % 38 % (24-48); MEAN CORPUSCULAR HEMOGLOBIN 31 pg (25-35); MEAN CORPUSCULAR HGB CONC 34 g/dL (31-37); MEAN CORPUSCULAR VOLUME 92 fL (79-100); MONO # 0.3 x10^3/uL (0.0-1.1); MONO % 8 % (0-9); NEUT # 2.2 x10^3uL (1.8-7.7); NEUT % 52 % (31-73); PLATELET COUNT 145 x10^3/uL (140-400); RED BLOOD COUNT 4.55 x10^6/uL (3.50-5.40); WHITE BLOOD COUNT 4.2 x10^3/uL (4.0-11.0)
[2017-11-28 09:34] LABS: ALBUMIN 4.1 g/dL (3.4-5.0); ALBUMIN/GLOBULIN RATIO 1.2 (1.0-1.7); CALCIUM 9.1 mg/dL (8.5-10.1); CREATININE 0.6 mg/dL (0.6-1.0); GFR 103.4; POTASSIUM 4.5 mmol/L (3.5-5.1); TOTAL BILIRUBIN 0.6 mg/dL (0.2-1.0); TOTAL PROTEIN 7.4 g/dL (6.4-8.2)
[2017-11-28 11:01] LABS: BACTERIA,URINE FEW /HPF (0-FEW); BILIRUBIN,URINE NEG (NEG); CLARITY,URINE HAZY; COLOR,URINE STRAW; GLUCOSE,URINE NEG (NEG); NITRITE,URINE NEG (NEG); RBC,URINE RARE /HPF (0-2); SQUAMOUS EPITHELIAL CELL,UR OCC /LPF; UROBILINOGEN,URINE 0.2 mg/dL (0.2 mg/dL)
== END | disposition home or self-care (01) ==
LOC: LAB 07:53
PROVIDERS: ATTEND Nurse Practitioner Adult Health
DX: E78.00 Pure hypercholesterolemia, unspecified (principal)
CPT/HCPCS: 36415; 80053; 80061; 81001; 85025; 87086; 87186

== ENCOUNTER → 2018-01-23 | Outpatient (CLI) | payer OTHER ==
--- NOTE | 2018-01-23 12:58 | RAD ---
Pelvic sonography; transabdominal and transvaginal exam Clinical indications: Right lower quadrant pain. Abnormal CT study. Comparison: CT study dated August 29, 2017. Findings: Uterus and ovaries are not visualized on the transabdominal examination due to relatively empty urinary bladder. Therefore, transvaginal sonography will be performed. Transvaginal sonography: The uterus appears to be surgically absent. Vaginal cuff contains nabothian cysts. Largest measures 1.3 cm. The right ovary is visualized and measures 3.0 cm and 2.6 cm and 3.6 cm in size and contains a central calcification measuring up to 1.7 cm in size. This corresponds to the CT finding. Color Doppler flow is seen within the right ovary. No free fluid is seen around the right ovary. Left ovary is not visualized. No adnexal mass is seen on this side. No free fluid is evident. IMPRESSION: The right ovary contains a 1.7 cm calcification which corresponds to the CT finding and is unchanged. This could represent dystrophic calcification from previous hemorrhagic cyst or could represent a calcified dermoid. No fat is seen here on the CT study however.
--- NOTE | 2018-01-23 13:08 | RAD ---
Complete abdomen ultrasound study History: Abdominal pain. Findings: No focal enlargement of the pancreas is seen. No focal aneurysmal dilatation of the abdominal aorta is seen. The intrahepatic portion of the IVC is unremarkable. The gallbladder is normal without gallstones. The liver measures 13.1 cm in length. There is attenuation of sound throughout the liver which may be seen with fatty infiltration of the liver. This decreases the sensitivity of sonography to detect focal hepatic lesions. There is a cyst of the left lobe of the liver measuring 13 mm. This is unchanged in size from the CT study. Extrahepatic bile duct measures 4.1 mm in caliber which is normal. The right kidney measures 11.3 cm in length and the left kidney measures 11.6 cm in length. No hydronephrosis or renal mass or perinephric fluid collection is seen on either side. The spleen measures 7.4 cm in length. No ascites is seen. IMPRESSION: Fatty infiltration of the liver. Liver cyst. No other significant abnormality.
== END | disposition home or self-care (01) ==
LOC: US 08:51
PROVIDERS: ATTEND Nurse Practitioner Adult Health
DX: K76.89 Other specified diseases of liver (principal); K76.0 Fatty (change of) liver, not elsewhere classified; N88.8 Other specified noninflammatory disorders of cervix uteri
CPT/HCPCS: 76700; 76830; 76856

== ENCOUNTER → 2018-03-21 | Outpatient (CLI) | payer OTHER ==
[2018-03-21 10:37] LABS: BASO % 0 % (0-3); EOS # 0.1 x10^3/uL (0.0-0.7); EOS % 1 % (0-3); HEMATOCRIT 42.5 % (36.0-47.0); HEMOGLOBIN 14.4 g/dL (12.0-15.5); LYMPH # 1.7 x10^3/uL (1.0-4.8); LYMPH % 40 % (24-48); MEAN CORPUSCULAR HEMOGLOBIN 31 pg (25-35); MEAN CORPUSCULAR HGB CONC 34 g/dL (31-37); MEAN CORPUSCULAR VOLUME 92 fL (79-100); MONO # 0.3 x10^3/uL (0.0-1.1); MONO % 7 % (0-9); NEUT # 2.2 x10^3uL (1.8-7.7); NEUT % 52 % (31-73); PLATELET COUNT 146 x10^3/uL (140-400); RED BLOOD COUNT 4.64 x10^6/uL (3.50-5.40); WHITE BLOOD COUNT 4.3 x10^3/uL (4.0-11.0)
[2018-03-21 10:39] LABS: ALBUMIN/GLOBULIN RATIO 1.1 (1.0-1.7); CALCIUM 8.9 mg/dL (8.5-10.1); CREATININE 0.6 mg/dL (0.6-1.0); POTASSIUM 3.4 mmol/L (3.5-5.1); TOTAL BILIRUBIN 0.7 mg/dL (0.2-1.0); TOTAL PROTEIN 7.6 g/dL (6.4-8.2)
[2018-03-21 14:07] LABS: THYROID STIM HORMONE (TSH) 2.761 uIU/mL (0.358-3.740)
[2018-03-21 23:09] LABS: HEMOGLOBIN A1C 5.9 % (4.8-5.6)
== END | disposition home or self-care (01) ==
LOC: LAB 07:13
PROVIDERS: ATTEND Nurse Practitioner Adult Health
DX: Z00.01 Encounter for general adult medical examination with abnormal findings (principal); E55.9 Vitamin D deficiency, unspecified; E78.5 Hyperlipidemia, unspecified; I11.9 Hypertensive heart disease without heart failure; R73.09 Other abnormal glucose; R53.83 Other fatigue
CPT/HCPCS: 36415; 80053; 80061; 82306; 82607; 82746; 83036; 84439; 84443; 85025

== ENCOUNTER 2018-08-15 17:30 | Emergency (ER) | payer OTHER ==
[~2018-08-15] VITALS: Ht 160 cm; Wt 73.5 kg
[2018-08-15 17:30] VITALS: BP 141/86
[2018-08-15] MEDS ORDERED: CONTRAST GIVEN MC PRN (18:00)
[2018-08-15] MEDS: IV NORMAL SALINE 1,000ML 1,000 ML IV ONE (18:20)
[2018-08-15] MEDS: ONDANSETRON PF 4 MG/2 ML VIAL. IV ONE (18:21)
--- NOTE | 2018-08-15 18:22 | PHYS DOC ---
Past History Past Medical History: No Pertinent History Past Surgical History: No Surgical History Alcohol Use: None Drug Use: None Adult General Chief Complaint Chief Complaint: ABDOMINAL PAIN HPI HPI Patient is a 57 year old female who presents with complaint of right lower quadrant pain. The patient states that over the past 6 months she has been having recurrent pain in her right lower quadrant. Patient states that this has been coming and going during that time. Patient states usually she has worsening pain in the morning but it seems to go away throughout the day. Patient has been following with Dr. Swan of gastroenterology. She states that the pain has been more frequent over the past week. After examining her in his office, Dr. Swan recommended that the patient come to the emergency department as he was concerned that she may have appendicitis. Patient denies any associated fever or vomiting and has had no significant change in stool habits. Patient states that her pain at worse is between 8-9 out of 10. Patient denies any known exacerbating or alleviating factors. Review of Systems Review of Systems Constitutional: Denies fever or chills [] Eyes: Denies change in visual acuity, redness, or eye pain [] HENT: Denies nasal congestion or sore throat [] Respiratory: Denies cough or shortness of breath [] Cardiovascular: Denies chest pain or edema[] GI: Abdominal pain, denies nausea, vomiting, bloody stools or diarrhea [] : Denies dysuria or hematuria [] Musculoskeletal: Denies back pain or joint pain [] Integument: Denies rash or skin lesions [] Neurologic: Denies headache, focal weakness or sensory changes [] All other systems were reviewed and found to be within normal limits, except as documented in this note. Current Medications Current Medications Current Medications Medications (Trade) Dose Ordered Sig/Ozzy Start Time Stop Time Status Last Admin Dose Admin Fentanyl Citrate (Fentanyl 2ml Vial) 25 mcg 1X ONCE 08/15/18 18:00 08/15/18 18:01 DC Info (Do NOT chart on this entry -- for MONITORING) 1 each PRN DAILY PRN 08/15/18 18:00 08/17/18 17:59 Iohexol (Omnipaque 300 Mg/ml) 75 ml 1X ONCE 08/15/18 18:00 08/15/18 18:01 DC Ondansetron HCl (Zofran) 4 mg 1X ONCE 08/15/18 18:00 08/15/18 18:01 DC Sodium Chloride 1,000 ml @ 1,000 mls/hr 1X ONCE 08/15/18 17:45 08/15/18 18:44 Allergies Allergies Allergies Coded Allergies Type Severity Reaction Last Updated Verified No Known Drug Allergies 04/20/16 No Physical Exam Physical Exam Constitutional: Well developed, well nourished, no acute distress, non-toxic appearance. [] HENT: Normocephalic, atraumatic, bilateral external ears normal, oropharynx moist, no oral exudates, nose normal. [] Eyes: PERRLA, EOMI, conjunctiva normal, no discharge. [] Neck: Normal range of motion, no tenderness, supple, no stridor. [] Cardiovascular:Heart rate regular rhythm, no murmur [] Lungs & Thorax: Bilateral breath sounds clear to auscultation [] Abdomen: Bowel sounds normal, soft, right lower quadrant tenderness to palpation with guarding, no rebound tenderness, no masses, no pulsatile masses. [] Skin: Warm, dry, no erythema, no rash. [] Back: No tenderness, no CVA tenderness. [] Extremities: No tenderness, no cyanosis, no clubbing, ROM intact, no edema. [] Neurologic: Alert and oriented X 3, normal motor function, normal sensory function, no focal deficits noted. [] Current Patient Data Vital Signs Vital Signs Date Time Temp Pulse Resp B/P (MAP) Pulse Ox O2 Delivery O2 Flow Rate FiO2 08/15/18 17:30 98.3 70 18 96 Room Air Lab Results Laboratory Tests Test 08/15/18 18:04 White Blood Count 6.1 x10^3/uL Red Blood Count 4.82 x10^6/uL Hemoglobin 14.8 g/dL Hematocrit 43.9 % Mean Corpuscular Volume 91 fL Mean Corpuscular Hemoglobin 31 pg Mean Corpuscular Hemoglobin Concent 34 g/dL Red Cell Distribution Width 13.4 % Platelet Count 155 x10^3/uL Neutrophils (%) (Auto) 49 % Lymphocytes (%) (Auto) 43 % Monocytes (%) (Auto) 6 % Eosinophils (%) (Auto) 1 % Basophils (%) (Auto) 0 % Neutrophils # (Auto) 3.0 x10^3uL Lymphocytes # (Auto) 2.6 x10^3/uL Monocytes # (Auto) 0.4 x10^3/uL Eosinophils # (Auto) 0.1 x10^3/uL Basophils # (Auto) 0.0 x10^3/uL Urine Collection Type Unknown Urine Color Yellow Urine Clarity Clear Urine pH 5.5 Urine Specific [place] 1.025 Urine Protein Neg Urine Glucose (UA) Neg mg/dL Urine Ketones (Stick) Neg mg/dL Urine Blood Trace Urine Nitrite Neg Urine Bilirubin Neg Urine Urobilinogen Dipstick 0.2 mg/dL Urine Leukocyte Esterase Small Urine RBC Occ /HPF Urine WBC 1-4 /HPF Urine Squamous Epithelial Cells Occ /LPF Urine Bacteria 0 /HPF Urine Mucus Slight /LPF Urine Yeast Present /HPF Sodium Level 138 mmol/L Potassium Level 3.9 mmol/L Chloride Level 102 mmol/L Carbon Dioxide Level 31 mmol/L Anion Gap 5 Blood Urea Nitrogen 21 mg/dL Creatinine 0.6 mg/dL Estimated GFR (Cockcroft-Gault) 103.0 BUN/Creatinine Ratio 35 Glucose Level 113 mg/dL Calcium Level 9.3 mg/dL Total Bilirubin 0.3 mg/dL Aspartate Amino Transf (AST/SGOT) 23 U/L Alanine Aminotransferase (ALT/SGPT) 46 U/L Alkaline Phosphatase 111 U/L Total Protein 8.0 g/dL Albumin 4.1 g/dL Albumin/Globulin Ratio 1.1 Lipase 227 U/L Current Medications Medications (Trade) Dose Ordered Sig/Ozzy Route PRN Reason Start Time Stop Time Status Last Admin Dose Admin Sodium Chloride 1,000 ml @ 1,000 mls/hr 1X ONCE IV 08/15/18 17:45 08/15/18 18:44 DC 08/15/18 18:20 Ondansetron HCl (Zofran) 4 mg 1X ONCE IV 08/15/18 18:00 08/15/18 18:01 DC 08/15/18 18:21 Fentanyl Citrate (Fentanyl 2ml Vial) 25 mcg 1X ONCE IV 08/15/18 18:00 08/15/18 18:01 DC 08/15/18 18:21 Iohexol (Omnipaque 300 Mg/ml) 75 ml 1X ONCE IV 08/15/18 18:00 08/15/18 18:01 DC 08/15/18 18:25 Info (Do NOT chart on this entry -- for MONITORING) 1 each PRN DAILY PRN MC SEE COMMENTS 08/15/18 18:00 08/17/18 17:59 EKG EKG Not performed[] Radiology/Procedures Radiology/[place] [address] IMAGING REPORT Signed PATIENT: ARGELIA VELEZ ACCOUNT: [id number] : 1960 LOCATION: ER AGE: 57 SEX: F EXAM STATUS: REG ER ORD. PHYSICIAN: CHANDU NEWBY DO REASON: right lower quadrant pain and tenderness PROCEDURE: CT ABD PELV W/ IV CONTRST ONLY PQRS Compliance Statement: One or more of the following individualized dose reduction techniques were utilized for this examination: 1. Automated exposure control 2. Adjustment of the mA and/or kV according to patient size 3. Use of iterative reconstruction technique CT ABD PELV W/ IV CONTRST ONLY Clinical Indication: RLQ PAIN WITH TENDERNESS. Comparison: CT abdomen and pelvis with contrast, August 29, 2017. Technique: Helical CT imaging of the abdomen and pelvis is performed after 75 cc of Omnipaque 300 IV contrast. Oral contrast not given. Findings: Bilateral lower lobe dependent atelectasis. Cardiac size normal. There is fatty infiltration of the liver. Stable small hypodensity in the left hepatic lobe. The gallbladder, spleen, pancreas, adrenal glands, abdominal aorta, and kidneys are normal. Stomach not well distended accentuating wall thickness. No dilated small bowel. Scattered stool in the colon. There is no colon wall thickening. The appendix is normal. No abdominal adenopathy or free fluid. Urinary bladder is normal. Uterus unremarkable. Surgical clips near the uterus. No pelvic free fluid. No acute bone abnormality. IMPRESSION: 1. No acute abdominal or pelvic abnormality. The appendix is normal. 2. Fatty infiltration of the liver. Electronically signed by: Dejuan Strange MD (08/15/2018 6:38 PM) [id number] DICTATED AND SIGNED BY: DEJUAN STRANGE MD DATE: 08/15/18 1830 CC: CHANDU NEWBY DO; SAADIA MALAGON MD; AMANDA EWING NP ~ [] Course & Med Decision Making Course & Med Decision Making Pertinent Labs and Imaging studies reviewed. (See chart for details) The patient was given IV fluids, fentanyl, and Zofran. CT imaging was negative for appendicitis or other acute pathology. Lab work unremarkable. Etiology of patient's symptoms does not appear to be acute or life-threatening. The patient is scheduled to have a colonoscopy within the next week with Dr. Swan. I contacted Dr. Swan and spoke with him regarding the lab and imaging results. He agreed that the patient could continue with outpatient follow-up. Advised patient to return to emergency department for any worsening symptoms. Patient voiced understanding and in agreement with treatment plan. Dragon Disclaimer Dragon Disclaimer This electronic medical record was generated, in whole or in part, using a voice recognition dictation system. Departure Departure: Impression: Primary Impression: Right lower quadrant abdominal pain Disposition: HOME, SELF-CARE Condition: IMPROVED Referrals: AMANDA EWING [facility] (PCP) Patient Instructions: Abdominal Pain (Nonspecific) Additional Instructions: Follow-up with Dr. Swan as scheduled for your colonoscopy. Return to the emergency department for any worsening symptoms. SAADIA MALAGON MD Aug 15, 2018 18:22
[2018-08-15 18:25] LABS: BASO % 0 % (0-3); EOS # 0.1 x10^3/uL (0.0-0.7); EOS % 1 % (0-3); HEMATOCRIT 43.9 % (36.0-47.0); HEMOGLOBIN 14.8 g/dL (12.0-15.5); LYMPH # 2.6 x10^3/uL (1.0-4.8); LYMPH % 43 % (24-48); MEAN CORPUSCULAR HEMOGLOBIN 31 pg (25-35); MEAN CORPUSCULAR HGB CONC 34 g/dL (31-37); MEAN CORPUSCULAR VOLUME 91 fL (79-100); MONO # 0.4 x10^3/uL (0.0-1.1); MONO % 6 % (0-9); NEUT % 49 % (31-73); PLATELET COUNT 155 x10^3/uL (140-400); RED BLOOD COUNT 4.82 x10^6/uL (3.50-5.40); RED CELL DISTRIBUTION WIDTH 13.4 % (11.5-14.5); WHITE BLOOD COUNT 6.1 x10^3/uL (4.0-11.0)
[2018-08-15] MEDS: IOHEXOL 300 MG/ML 75 ML VIAL. IV ONE (18:25)
[2018-08-15 18:31] LABS: ALBUMIN 4.1 g/dL (3.4-5.0); ALBUMIN/GLOBULIN RATIO 1.1 (1.0-1.7); BACTERIA,URINE 0 /HPF (0-FEW); BILIRUBIN,URINE NEG (NEG); CALCIUM 9.3 mg/dL (8.5-10.1); CLARITY,URINE CLEAR; COLOR,URINE YELLOW; CREATININE 0.6 mg/dL (0.6-1.0); GLUCOSE,URINE NEG (NEG); NITRITE,URINE NEG (NEG); RBC,URINE OCC /HPF (0-2); SQUAMOUS EPITHELIAL CELL,UR OCC /LPF; TOTAL BILIRUBIN 0.3 mg/dL (0.2-1.0); UROBILINOGEN,URINE 0.2 mg/dL (0.2 mg/dL)
[2018-08-15 18:32] LABS: YEAST,URINE PRESENT /HPF
[2018-08-15 18:34] LABS: POTASSIUM 3.9 mmol/L (3.5-5.1)
--- NOTE | 2018-08-15 18:42 | RAD ---
PQRS Compliance Statement: One or more of the following individualized dose reduction techniques were utilized for this examination: 1. Automated exposure control 2. Adjustment of the mA and/or kV according to patient size 3. Use of iterative reconstruction technique CT ABD PELV W/ IV CONTRST ONLY Clinical Indication: RLQ PAIN WITH TENDERNESS. Comparison: CT abdomen and pelvis with contrast, August 29, 2017. Technique: Helical CT imaging of the abdomen and pelvis is performed after 75 cc of Omnipaque 300 IV contrast. Oral contrast not given. Findings: Bilateral lower lobe dependent atelectasis. Cardiac size normal. There is fatty infiltration of the liver. Stable small hypodensity in the left hepatic lobe. The gallbladder, spleen, pancreas, adrenal glands, abdominal aorta, and kidneys are normal. Stomach not well distended accentuating wall thickness. No dilated small bowel. Scattered stool in the colon. There is no colon wall thickening. The appendix is normal. No abdominal adenopathy or free fluid. Urinary bladder is normal. Uterus unremarkable. Surgical clips near the uterus. No pelvic free fluid. No acute bone abnormality. IMPRESSION: 1. No acute abdominal or pelvic abnormality. The appendix is normal. 2. Fatty infiltration of the liver. Electronically signed by: Dejuan Strange MD (08/15/2018 6:38 PM) [facility]
== END 2018-08-15 19:00 | disposition home or self-care (01) ==
LOC: ER 17:30
DX: R10.31 Right lower quadrant pain (principal)
CPT/HCPCS: 36415; 74177; 80053; 81001; 83690; 85025; 87086; 96374; 96375; 99285; J2405; J3010; Q9967; J7030

== ENCOUNTER → 2018-08-29 | Day surgery (SDC) | payer OTHER ==
[~2018-08-29] MED LIST changes: +ALBUTEROL SULFATE 2.5 MG/3 ML NEBU. NEB PRN; +ATROPINE 0.5 MG/5 ML DISP.SYRIN. IV PRN; +IV RINGERS SOLUTION,LACTATED 1,000 ML IV SCH; +LIDOCAINE 2% PF Vial for OR 5 ML VIAL. ONE; +NALOXONE 0.4 MG/ML VIAL. IV PRN; +ONDANSETRON PF 4 MG/2 ML VIAL. IV PRN; +PROPOFOL 20 ML IV ONE; +PROPOFOL 40 ML IV ONE
[2018-08-29 11:33] VITALS: BP 142/92
== END | disposition home or self-care (01) ==
LOC: SURG 09:22
PROVIDERS: ATTEND Internal Medicine Gastroenterology
DX: Z12.11 Encounter for screening for malignant neoplasm of colon (principal); K22.2 Esophageal obstruction; K29.00 Acute gastritis without bleeding; K21.9 Gastro-esophageal reflux disease without esophagitis; Z79.899 Other long term (current) drug therapy; Z86.010 Personal history of colon polyps
CPT/HCPCS: 43239; 43450; 45378; 88305; 88342; J2704; J7120; 43249; J2001

== ENCOUNTER → 2018-09-10 | Outpatient (CLI) | payer OTHER ==
[2018-08-29 11:33] VITALS: BP 142/92
[~2018-09-10] MED LIST changes: -ALBUTEROL SULFATE 2.5 MG/3 ML NEBU. NEB PRN; -ATROPINE 0.5 MG/5 ML DISP.SYRIN. IV PRN; -IV RINGERS SOLUTION,LACTATED 1,000 ML IV SCH; -LIDOCAINE 2% PF Vial for OR 5 ML VIAL. ONE; -NALOXONE 0.4 MG/ML VIAL. IV PRN; -ONDANSETRON PF 4 MG/2 ML VIAL. IV PRN; -PROPOFOL 20 ML IV ONE; -PROPOFOL 40 ML IV ONE
--- NOTE | 2018-09-11 15:24 | RAD ---
DATE: 09/10/2018 EXAM: MAMMO ANIKA SCREENING BILATERAL HISTORY: Routine screening COMPARISON: 06/22/2016 This study was interpreted with the benefit of Computerized Aided Detection (CAD). Breast Density: HETERO The breast parenchyma is heterogenously dense, which could reduce sensitivity of mammography. Breast parenchyma level C. FINDINGS: 2-D and 3-D tomosynthesis imaging was performed in CC and MLO projections. No new or enlarging breast densities are seen. Benign type calcifications are present. No suspicious microcalcifications have developed. IMPRESSION: Stable mammograms without evidence of malignancy. BI-RADS CATEGORY: 2 BENIGN FINDING(S) RECOMMENDED FOLLOW-UP: 12M 12 MONTH FOLLOW-UP PQRS compliance statement: Patient information was entered into a reminder system with a target due date for the next mammogram. Mammography is a sensitive method for finding small breast cancers, but it does not detect them all and is not a substitute for careful clinical examination. A negative mammogram does not negate a clinically suspicious finding and should not result in delay in biopsying a clinically suspicious abnormality. "Our facility is accredited by the [employer] Mammography Program."
== END | disposition home or self-care (01) ==
LOC: MAMMO 13:40
PROVIDERS: ATTEND Nurse Practitioner Adult Health
DX: Z12.31 Encounter for screening mammogram for malignant neoplasm of breast (principal)
CPT/HCPCS: 77063; 77067

== ENCOUNTER → 2018-09-23 | Outpatient (CLI) | payer OTHER ==
[2018-08-29 11:33] VITALS: BP 142/92
[2018-09-23 08:22] LABS: BASO % 0 % (0-3); EOS % 1 % (0-3); HEMATOCRIT 44.4 % (36.0-47.0); HEMOGLOBIN 14.6 g/dL (12.0-15.5); LYMPH # 1.4 x10^3/uL (1.0-4.8); LYMPH % 38 % (24-48); MEAN CORPUSCULAR HEMOGLOBIN 30 pg (25-35); MEAN CORPUSCULAR HGB CONC 33 g/dL (31-37); MEAN CORPUSCULAR VOLUME 91 fL (79-100); MONO # 0.3 x10^3/uL (0.0-1.1); MONO % 7 % (0-9); NEUT % 54 % (31-73); PLATELET COUNT 153 x10^3/uL (140-400); RED BLOOD COUNT 4.87 x10^6/uL (3.50-5.40); RED CELL DISTRIBUTION WIDTH 13.4 % (11.5-14.5); WHITE BLOOD COUNT 3.7 x10^3/uL (4.0-11.0)
[2018-09-23 08:29] LABS: BACTERIA,URINE 0 /HPF (0-FEW); BILIRUBIN,URINE NEG (NEG); CLARITY,URINE CLEAR; COLOR,URINE YELLOW; GLUCOSE,URINE NEG (NEG); NITRITE,URINE NEG (NEG); RBC,URINE RARE /HPF (0-2); SQUAMOUS EPITHELIAL CELL,UR OCC /LPF; UROBILINOGEN,URINE 0.2 mg/dL (0.2 mg/dL); WBC,URINE RARE /HPF (0-4); YEAST,URINE PRESENT /HPF
[2018-09-23 08:31] LABS: ALBUMIN/GLOBULIN RATIO 1.1 (1.0-1.7); CALCIUM 9.1 mg/dL (8.5-10.1); CREATININE 0.6 mg/dL (0.6-1.0); POTASSIUM 4.2 mmol/L (3.5-5.1); TOTAL BILIRUBIN 0.6 mg/dL (0.2-1.0); TOTAL PROTEIN 7.6 g/dL (6.4-8.2)
[2018-09-23 12:53] LABS: FREE T4 0.9 ng/dL (0.76-1.46); THYROID STIM HORMONE (TSH) 1.54 uIU/mL (0.358-3.740)
== END | disposition home or self-care (01) ==
LOC: LAB 07:36
PROVIDERS: ATTEND Physician Assistant Medical
DX: E78.5 Hyperlipidemia, unspecified (principal); E55.9 Vitamin D deficiency, unspecified; R53.83 Other fatigue; R10.31 Right lower quadrant pain
CPT/HCPCS: 36415; 80053; 80061; 81001; 82306; 84439; 84443; 84481; 85025

== ENCOUNTER → 2019-06-15 | Outpatient (CLI) | payer OTHER ==
[2018-08-29 11:33] VITALS: BP 142/92
[2019-06-15 13:37] LABS: BASO % 0 % (0-3); EOS % 1 % (0-3); HEMATOCRIT 43.6 % (36.0-47.0); HEMOGLOBIN 14.4 g/dL (12.0-15.5); LYMPH # 1.8 x10^3/uL (1.0-4.8); LYMPH % 38 % (24-48); MEAN CORPUSCULAR HEMOGLOBIN 31 pg (25-35); MEAN CORPUSCULAR HGB CONC 33 g/dL (31-37); MEAN CORPUSCULAR VOLUME 93 fL (79-100); MONO # 0.3 x10^3/uL (0.0-1.1); MONO % 7 % (0-9); NEUT # 2.5 x10^3uL (1.8-7.7); NEUT % 54 % (31-73); PLATELET COUNT 157 x10^3/uL (140-400); RED BLOOD COUNT 4.67 x10^6/uL (3.50-5.40); RED CELL DISTRIBUTION WIDTH 13.3 % (11.5-14.5); WHITE BLOOD COUNT 4.7 x10^3/uL (4.0-11.0)
[2019-06-15 13:42] LABS: ALBUMIN 4.2 g/dL (3.4-5.0); ALBUMIN/GLOBULIN RATIO 1.2 (1.0-1.7); CALCIUM 9.5 mg/dL (8.5-10.1); CREATININE 0.6 mg/dL (0.6-1.0); GFR 102.7; POTASSIUM 4.2 mmol/L (3.5-5.1); TOTAL BILIRUBIN 0.6 mg/dL (0.2-1.0); TOTAL PROTEIN 7.6 g/dL (6.4-8.2)
== END | disposition home or self-care (01) ==
LOC: PMG 11:51
PROVIDERS: ATTEND Physician Assistant Medical
DX: E78.00 Pure hypercholesterolemia, unspecified (principal); L30.9 Dermatitis, unspecified; R73.9 Hyperglycemia, unspecified
CPT/HCPCS: 36415; 80053; 80061; 85025

== ENCOUNTER → 2019-09-17 | Outpatient (CLI) | payer OTHER ==
[2018-08-29 11:33] VITALS: BP 142/92
--- NOTE | 2019-09-17 14:27 | RAD ---
DATE: 09/17/2019 8:47 AM EXAM: MAMMO ANIKA SCREENING BILATERAL HISTORY: Screening mammogram COMPARISON: September 10, 2018 Bilateral CC and MLO views of the breasts were performed. Bilateral breast tomosynthesis was performed in CC and MLO projections. This study was interpreted with the benefit of Computerized Aided Detection (CAD). FINDINGS: Breast Density: HETERO The breast parenchyma Is heterogeneously dense, which could reduce sensitivity of mammography. Breast parenchyma level C No new suspicious masses, microcalcifications or architectural distortion is present to suggest malignancy in either breast. The visualized axillae are unremarkable. IMPRESSION: No mammographic evidence of malignancy. BI-RADS CATEGORY: 1 NEGATIVE RECOMMENDED FOLLOW-UP: 12M 12 MONTH FOLLOW-UP Annual screening mammography is recommended, unless clinically indicated sooner based on symptoms or change in physical exam. PQRS compliance statement: Patient information was entered into a reminder system with a target due date one year for the next mammogram. Mammography is a sensitive method for finding small breast cancers, but it does not detect them all and is not a substitute for careful clinical examination. A negative mammogram does not negate a clinically suspicious finding and should not result in delay in biopsying a clinically suspicious abnormality. "Our facility is accredited by the [employer] Mammography Program."
== END | disposition home or self-care (01) ==
LOC: MAMMO 08:14
PROVIDERS: ATTEND Physician Assistant Medical
DX: Z12.31 Encounter for screening mammogram for malignant neoplasm of breast (principal)
CPT/HCPCS: 77063; 77067

== ENCOUNTER → 2020-01-14 | Outpatient (CLI) | payer OTHER ==
[2018-08-29 11:33] VITALS: BP 142/92
[2020-01-14 09:08] LABS: BASO % 1 % (0-3); EOS # 0.1 x10^3/uL (0.0-0.7); EOS % 2 % (0-3); HEMATOCRIT 43.1 % (36.0-47.0); HEMOGLOBIN 14.3 g/dL (12.0-15.5); LYMPH # 1.6 x10^3/uL (1.0-4.8); LYMPH % 42 % (24-48); MEAN CORPUSCULAR HEMOGLOBIN 31 pg (25-35); MEAN CORPUSCULAR HGB CONC 33 g/dL (31-37); MEAN CORPUSCULAR VOLUME 94 fL (79-100); MONO # 0.3 x10^3/uL (0.0-1.1); MONO % 7 % (0-9); NEUT # 1.9 x10^3uL (1.8-7.7); NEUT % 49 % (31-73); PLATELET COUNT 150 x10^3/uL (140-400); RED CELL DISTRIBUTION WIDTH 12.9 % (11.5-14.5); WHITE BLOOD COUNT 3.8 x10^3/uL (4.0-11.0)
[2020-01-14 09:15] LABS: ALBUMIN/GLOBULIN RATIO 1.2 (1.0-1.7); CALCIUM 8.9 mg/dL (8.5-10.1); CREATININE 0.6 mg/dL (0.6-1.0); GFR 102.3; POTASSIUM 4.7 mmol/L (3.5-5.1); TOTAL BILIRUBIN 0.5 mg/dL (0.2-1.0); TOTAL PROTEIN 7.3 g/dL (6.4-8.2)
[2020-01-14 13:11] LABS: FREE T4 0.99 ng/dL (0.76-1.46); THYROID STIM HORMONE (TSH) 1.862 uIU/mL (0.358-3.740)
[2020-01-15 00:07] LABS: HEMOGLOBIN A1C 6.1 % (4.8-5.6)
== END | disposition home or self-care (01) ==
LOC: LAB 07:10
PROVIDERS: ATTEND Physician Assistant Medical
DX: E78.5 Hyperlipidemia, unspecified (principal); R53.83 Other fatigue; R73.09 Other abnormal glucose
CPT/HCPCS: 36415; 80053; 80061; 83036; 84439; 84443; 84481; 85025

== ENCOUNTER → 2020-01-15 | Outpatient (CLI) | payer OTHER ==
[2018-08-29 11:33] VITALS: BP 142/92
--- NOTE | 2020-01-15 12:47 | RAD ---
Clinical indications: Back pain and tailbone pain FIVE-VIEW LUMBAR SPINE SERIES FINDINGS: The transverse processes are intact. No compression fracture discitis or lytic process is evident. No anterolisthesis is evident. No spondylolysis is seen. Degenerative facet arthropathy is seen at L4-5 and L5-S1 bilaterally. There is mild degenerative endplate spurring throughout the lumbar spine. Mild degenerative disc space narrowing is seen at L4-5 and L5-S1. IMPRESSION: Mild degenerative lumbar spondylosis. No acute compression fracture. 3 VIEW STUDY OF THE SACRUM AND COCCYX FINDINGS: No acute fracture or displacement or lytic process is evident. IMPRESSION: No acute osseous abnormality. Electronically signed by: Dylan Angulo MD (01/15/2020 12:44 PM) [id number]
== END | disposition home or self-care (01) ==
LOC: DXRAD 06:57
PROVIDERS: ATTEND Physician Assistant Medical
DX: M47.816 Spondylosis without myelopathy or radiculopathy, lumbar region (principal); M48.07 Spinal stenosis, lumbosacral region; M46.06 Spinal enthesopathy, lumbar region; M53.3 Sacrococcygeal disorders, not elsewhere classified
CPT/HCPCS: 72110; 72220

== ENCOUNTER → 2020-02-10 | Outpatient (CLI) | payer OTHER ==
[2018-08-29 11:33] VITALS: BP 142/92
== END | disposition home or self-care (01) ==
LOC: LAB 08:12
PROVIDERS: ATTEND Internal Medicine Cardiovascular Disease
DX: R07.9 Chest pain, unspecified (principal)
CPT/HCPCS: 36415; 84484

== ENCOUNTER → 2020-06-04 | Outpatient (CLI) | payer OTHER ==
[2018-08-29 11:33] VITALS: BP 142/92
== END | disposition home or self-care (01) ==
LOC: LAB 12:16
PROVIDERS: ATTEND Internal Medicine Cardiovascular Disease
DX: Z20.828 Contact with and (suspected) exposure to other viral communicable diseases (principal)
CPT/HCPCS: C9803; U0003; 36415

== ENCOUNTER → 2020-08-29 | Outpatient (CLI) | payer OTHER ==
[2018-08-29 11:33] VITALS: BP 142/92
== END ==
LOC: LAB 11:16
PROVIDERS: ATTEND Internal Medicine Cardiovascular Disease
DX: Z20.828 Contact with and (suspected) exposure to other viral communicable diseases (principal)
CPT/HCPCS: U0003-CS

== ENCOUNTER → 2020-09-12 | Outpatient (CLI) | payer OTHER ==
[2018-08-29 11:33] VITALS: BP 142/92
--- NOTE | 2020-09-12 14:24 | RAD ---
BILATERAL SCREENING MAMMOGRAM, 3-D History: Routine screening. Comparison: 09/15/2011, 06/22/2016, 09/10/2018, 09/17/2019. Technique: MLO and CC digital tomosynthesis (3D) images obtained. Radiologist reviewed these images on dedicated workstation. Findings: Breast Tissue Density B : There are scattered areas of fibroglandular density. There are no dominant masses, suspicious microcalcifications, or architectural distortion. IMPRESSION: No mammographic evidence of malignancy. Recommend routine screening. BI-RADS category 1: Negative. The images were reviewed with computer-aided detection. Patient information is entered into reminder system with a target due date for the next screening mammogram. Mammography is the most sensitive method for finding small breast cancers, but it does not detect them all and is not a substitute for careful clinical examination. A negative mammogram does not negate a clinically suspicious finding and should not result in delay in biopsying a clinically suspicious abnormality. "Our facility is accredited by the [employer] Mammography Program." Electronically signed by: Mingo Silva MD (09/12/2020 2:21 PM) [id number]
== END ==
LOC: MAMMO 12:20
PROVIDERS: ATTEND Physician Assistant Medical
DX: Z12.31 Encounter for screening mammogram for malignant neoplasm of breast (principal)
CPT/HCPCS: 77063; 77067

== ENCOUNTER → 2021-01-03 | Outpatient (CLI) | payer OTHER ==
[2018-08-29 11:33] VITALS: BP 142/92
--- NOTE | 2021-01-03 17:11 | RAD ---
EXAM: Chest, 2 views. HISTORY: Chest pain. COMPARISON: None. FINDINGS: 2 views of chest are obtained. There is no infiltrate, pleural effusion or pneumothorax. Th ere is a prominent cardiac silhouette. IMPRESSION: No acute pulmonary finding. Electronically signed by: Jasmin Ward MD (01/03/2021 5:09 PM) [id number]
== END ==
LOC: DXRAD 16:38
PROVIDERS: ATTEND Physician Assistant
DX: R07.9 Chest pain, unspecified (principal); N64.4 Mastodynia; R05 Cough
CPT/HCPCS: 71046

== ENCOUNTER → 2021-01-04 | Outpatient (CLI) | payer OTHER ==
[2018-08-29 11:33] VITALS: BP 142/92
[2021-01-04 08:23] LABS: BASO % 0 % (0-3); EOS % 1 % (0-3); HEMATOCRIT 44.1 % (36.0-47.0); HEMOGLOBIN 14.5 g/dL (12.0-15.5); LYMPH # 1.6 x10^3/uL (1.0-4.8); LYMPH % 37 % (24-48); MEAN CORPUSCULAR HEMOGLOBIN 31 pg (25-35); MEAN CORPUSCULAR HGB CONC 33 g/dL (31-37); MEAN CORPUSCULAR VOLUME 93 fL (79-100); MONO # 0.3 x10^3/uL (0.0-1.1); MONO % 6 % (0-9); NEUT # 2.4 x10^3uL (1.8-7.7); NEUT % 55 % (31-73); PLATELET COUNT 157 x10^3/uL (140-400); RED BLOOD COUNT 4.73 x10^6/uL (3.50-5.40); RED CELL DISTRIBUTION WIDTH 13.2 % (11.5-14.5); WHITE BLOOD COUNT 4.3 x10^3/uL (4.0-11.0)
[2021-01-04 08:35] LABS: ALBUMIN 3.9 g/dL (3.4-5.0); CREATININE 0.5 mg/dL (0.6-1.0); GFR 125.9; POTASSIUM 4.8 mmol/L (3.5-5.1); TOTAL BILIRUBIN 0.6 mg/dL (0.2-1.0)
[2021-01-04 15:03] LABS: FREE T4 0.92 ng/dL (0.76-1.46); THYROID STIM HORMONE (TSH) 2.58 uIU/mL (0.358-3.740)
== END ==
LOC: LAB 07:31
PROVIDERS: ATTEND Physician Assistant
DX: Z00.00 Encounter for general adult medical examination without abnormal findings (principal); E55.9 Vitamin D deficiency, unspecified; E78.5 Hyperlipidemia, unspecified; Z82.49 Family history of ischemic heart disease and other diseases of the circulatory system
CPT/HCPCS: 80053; 80061; 82652; 84439; 84443; 85025

== ENCOUNTER → 2021-09-21 | Outpatient (CLI) | payer OTHER ==
[2018-08-29 11:33] VITALS: BP 142/92
[~2021-09-21] MED LIST changes: +CLON0.5T4 PO; +DICY20TA PO; -DICY20TA3 PO; +LIDO700A21 TP
--- NOTE | 2021-09-21 16:32 | RAD ---
EXAM: ULTRASOUND SOFT TISSUE NECK CLINICAL HISTORY: Heterogeneous thyroid on CT COMPARISON: CT chest abdomen pelvis 09/15/2021 TECHNIQUE: Ultrasound examination of the thyroid gland was performed FINDINGS: The right thyroid lobe measures 5.9 x 2.1 x 1.8 cm. The left thyroid lobe measures 6.1 x 2.1 x 1.8 cm . The isthmus measures 9 mm. The thyroid parenchyma is mildly heterogeneous. There is a lobulation ex tending from the isthmus on the right, likely parenchymal lobe Thyroid nodules: Nodule #1: Location: Inferior right thyroid lobe Size: 0.7 x 0.7 x 0.6 cm Composition: Solid Echogenicity: Hypoechoic Margins: Smooth Shape: Equally wide as tall Echogenic foci: None TI-RADS catergory: 4 IMPRESSION: Mildly heterogeneous thyroid gland. 0.7 cm TIRADS-4 nodule in the inferior right thyroid lobe, below the size threshold for FNA. ACR TI-RADS RECOMMENDATIONS: TR5 (>7 POINTS): FNA if > 1cm, follow-up if 0.5-0.9 cm TR-4 (4-6 POINTS): FNA if > 1.5 cm, follow-up if 1-1.4 cm TR-3 (3 POINTS): FNA if >2.5 cm, follow-up if 1.5-2.4 cm TR-2 (2 POINTS) AND TR-1 (0 POINTS): no FNA or follow-up ACR RECOMMENDS THAT NO MORE THAN TWO NODULES WITH HIGHEST TOTAL POINT SCORE SHOULD BE BIOPSIED AND NO MORE THAN FOUR NODULES SHOULD BE FOLLOWED. Electronically signed by: Lydia Fontanez MD (09/21/2021 4:30 PM) [id number]
== END ==
LOC: US 10:44
PROVIDERS: ATTEND Physician Assistant
DX: E04.1 Nontoxic single thyroid nodule (principal); R93.89 Abnormal findings on diagnostic imaging of other specified body structures
CPT/HCPCS: 76536

== ENCOUNTER 2021-10-27 19:16 | Emergency (ER) | payer OTHER ==
[~2021-10-27] VITALS: Ht 162.6 cm; Wt 72.0 kg
[2021-10-27 19:27] VITALS: BP 141/79
--- NOTE | 2021-10-27 19:29 | PHYS DOC ---
Past History Past Medical History: No Pertinent History Past Surgical History: No Surgical History Smoking: Non-smoker Alcohol Use: None Drug Use: None General Adult EDM: Chief Complaint: ALLERGIC REACTION HPI: HPI: ".. I got food poisoning..... All my symptoms started after eating a taco salad.... Nausea.... Itching.... Rash...." Patient is a 60 year old female who presents with above hx and complaints of allergic reaction. Patient states symptoms started after eating a taco salad earlier tonight at 1930 hrs.. The patient denies any other changes in foods or meds or other products. No recent travel. No specific ill contacts. Normally healthy. Up-to-date vaccinations. Has hive-like rash duration on face and body. Upset stomach and nausea.. The pt. follows with [facility] for care. Review of Systems: Review of Systems: Constitutional: Denies fever or chills Eyes: Denies change in visual acuity HENT: Denies nasal congestion or sore throat Respiratory: Denies cough or shortness of breath Cardiovascular: Denies chest pain or edema GI: Complains of nausea,. Denies vomiting, bloody stools or diarrhea : Denies dysuria Musculoskeletal: Denies back pain or joint pain Integument: Complains of hives Neurologic: Denies headache, focal weakness or sensory changes Endocrine: Denies polyuria or polydipsia Lymphatic: Denies swollen glands Psychiatric: Denies depression or anxiety Family History: Family History: Noncontributory to presentation Current Medications: Current Meds: See nursing for home meds Allergies: Allergies: Allergies Coded Allergies Type Severity Reaction Last Updated Verified sulfamethoxazole Adverse Reaction Intermediate nausea/abdominal cramping/ vomitting 12/02/18 Yes trimethoprim Adverse Reaction Intermediate nausea/abdominal cramping/ vomitting 12/02/18 Yes Physical Exam: PE: Constitutional: , Mild distress, non-toxic appearance. [] HENT: Normocephalic, atraumatic, bilateral external ears normal, oropharynx moist, no oral exudates, nose normal. Hives Eyes: PERRLA, EOMI, conjunctiva normal, no discharge. [] Neck: Normal range of motion, no tenderness, supple, no stridor. [] Cardiovascular:Heart rate regular rhythm, no murmur [] Lungs & Thorax: Bilateral breath sounds clear to auscultation [] Abdomen: Bowel sounds hyperactive, soft, no tenderness, no masses, no pulsatile masses. [] Skin: Warm, dry, no erythema, hives Back: No tenderness, no CVA tenderness. [] Extremities: No tenderness, no cyanosis, no clubbing, ROM intact, no edema. [] Neurologic: Alert and oriented X 3, normal motor function, normal sensory function, no focal deficits noted. [] Psychologic: Affect normal, judgement normal, mood normal. [] EKG: EKG: [] Radiology/Procedures: Radiology/Procedures: [] Heart Score: C/O Chest Pain: N/A Risk Factors: Risk Factors: DM, Current or recent (<one month) smoker, HTN, HLP, family history of CAD, obesity. Risk Scores: Score 0 - 3: 2.5% MACE over next 6 weeks - Discharge Home Score 4 - 6: 20.3% MACE over next 6 weeks - Admit for Clinical Observation Score 7 - 10: 72.7% MACE over next 6 weeks - Early Invasive Strategies Course & Med Decision Making: Course & Med Decision Making Pertinent Labs and Imaging studies reviewed. (See chart for details) Patient stay on a clear fluid diet only for the next 2 days. No solids. No milk products. Clear fluids only. Push clear fluids. Take Pepcid 20 mg twice a day. Expect episode of diarrhea. Take prednisone 50 mg a day. Take Benandyl 25-50 mg four times a day for itching. Take Zofran for active nausea vomiting. Follow-up primary care. Return if any concerns. Impression: 1. Food poisoning- by hx [] Alvin Disclaimer: Alvin Disclaimer: This electronic medical record was generated, in whole or in part, using a voice recognition dictation system. Departure Departure: Referrals: ASIA SERNA (PCP) Scripts Prednisone (PREDNISONE) 50 Mg Tablet 50 MG PO DAILY for Allergy for 5 Days, #5 TAB Prov: GENTRY RAINES MD 10/27/21 Famotidine (PEPCID AC) 10 Mg Tablet 20 MG PO BID for GI for 10 Days, #40 TAB Prov: GENTRY RAINES MD 10/27/21 GENTRY RAINES MD Oct 27, 2021 19:29
[2021-10-27] MEDS ORDERED: ONDANSETRON ODT 4 MG TAB.RAPDIS PO ONE (19:45)
[2021-10-27] MEDS ORDERED: MAGNESIUM HYDROXIDE 2,400 MG/30 ML ORAL.SUSP. PO ONE (19:45)
[2021-10-27] MEDS ORDERED: ACETAMINOPHEN 500 MG TABLET PO ONE (19:45)
[2021-10-27] MEDS ORDERED: FAMOTIDINE 20 MG TABLET PO ONE (19:45)
[2021-10-27] MEDS ORDERED: ALBUTEROL SULFATE 8GM INHALER. INH ONE (19:45)
[2021-10-27] MEDS ORDERED: predniSONE 20 MG TABLET PO ONE (19:45)
[2021-10-27] MEDS ORDERED: PRED50TA PO (20:03)
[2021-10-27] MEDS ORDERED: FAMO10TA26 PO (20:03)
== END 2021-10-27 20:14 | disposition home or self-care (01) ==
LOC: ER 19:16
DX: A05.9 Bacterial foodborne intoxication, unspecified (principal); Z88.2 Allergy status to sulfonamides
CPT/HCPCS: 99283-25

== ENCOUNTER → 2022-02-06 | Outpatient (CLI) | payer OTHER ==
[~2022-02-06] MED LIST changes: +FAMO10TA26 PO; +PRED50TA PO
[2022-02-06 10:40] LABS: BASO % 1 % (0-3); EOS % 1 % (0-3); HEMATOCRIT 42.9 % (36.0-47.0); HEMOGLOBIN 14.2 g/dL (12.0-15.5); LYMPH # 1.5 x10^3/uL (1.0-4.8); LYMPH % 40 % (24-48); MEAN CORPUSCULAR HEMOGLOBIN 31 pg (25-35); MEAN CORPUSCULAR HGB CONC 33 g/dL (31-37); MEAN CORPUSCULAR VOLUME 94 fL (79-100); MONO # 0.2 x10^3/uL (0.0-1.1); MONO % 6 % (0-9); NEUT % 53 % (31-73); PLATELET COUNT 147 x10^3/uL (140-400); RED BLOOD COUNT 4.56 x10^6/uL (3.50-5.40); RED CELL DISTRIBUTION WIDTH 13.2 % (11.5-14.5); WHITE BLOOD COUNT 3.8 x10^3/uL (4.0-11.0)
[2022-02-06 11:00] LABS: ALBUMIN 4.3 g/dL (3.4-5.0); ALBUMIN/GLOBULIN RATIO 1.4 (1.0-1.7); CALCIUM 9.5 mg/dL (8.5-10.1); CREATININE 0.5 mg/dL (0.6-1.0); GFR 125.4; POTASSIUM 4.7 mmol/L (3.5-5.1); TOTAL BILIRUBIN 0.8 mg/dL (0.2-1.0); TOTAL PROTEIN 7.4 g/dL (6.4-8.2)
[2022-02-06 18:17] LABS: CHOLESTEROL/HDL RATIO 3.8; FREE T4 0.98 ng/dL (0.76-1.46)
[2022-02-06 18:18] LABS: THYROID STIM HORMONE (TSH) 1.436 uIU/mL (0.358-3.740)
[2022-02-07 01:07] LABS: HEMOGLOBIN A1C 6.4 % (4.8-5.6)
== END ==
LOC: LAB 09:28
PROVIDERS: ATTEND Physician Assistant
DX: Z00.00 Encounter for general adult medical examination without abnormal findings (principal); R73.02 Impaired glucose tolerance (oral); E78.1 Pure hyperglyceridemia; E55.9 Vitamin D deficiency, unspecified
CPT/HCPCS: 36415; 80053; 80061; 82306; 83036; 84439; 84443; 85025

== ENCOUNTER → 2022-03-08 | Outpatient (CLI) | payer OTHER ==
--- NOTE | 2022-03-08 15:27 | RAD ---
EXAMINATION: MG BILAT SCREEN+ANIKA CLINICAL HISTORY: Screening TECHNIQUE: Digital craniocaudal and mediolateral oblique views of the bilateral breasts obtained with 3-D tomosynthesis. COMPARISON: 09/12/2020, 08/20/2019, 09/10/2018, 06/22/2016 BREAST COMPOSITION: There are scattered areas of fibroglandular density. FINDINGS: No evidence of suspicious mass, calcifications, or areas of architectural distortion. IMPRESSION: No mammographic evidence of malignancy. BI-RADS ASSESSMENT: Category 1: Negative RECOMMENDATION: Return for routine bilateral screening mammogram in one year. Patient information is entered into the reminder system with a target due date for the next screening mammogram. "Our facility is accredited by the [employer] Mammography [employer]." Electronically signed by: Siva Arana DO (03/08/2022 3:25 PM) [email or web address]
== END ==
LOC: MAMMO 09:02
PROVIDERS: ATTEND Physician Assistant
DX: Z12.31 Encounter for screening mammogram for malignant neoplasm of breast (principal)
CPT/HCPCS: 77063; 77067